=== PATIENT | female | born 1975 | race Caucasian/White ===

== ENCOUNTER 2020-05-24 13:58 | Outpatient (REF) | payer OTHER, SELFPAY | END 2020-05-24 13:59 | disposition home or self-care (01) | LOC: HO.LNP 13:58 | PROVIDERS: Visit Provider Hospitalist | DX: Z13.89 Encounter for screening for other disorder (principal) ==

== ENCOUNTER 2020-05-24 14:17 | Outpatient (REF) | payer OTHER, SELFPAY | END 2020-05-24 14:18 | disposition home or self-care (01) | LOC: HO.LAB 14:17 | PROVIDERS: Visit Provider Hospitalist | DX: Z20.828 Contact with and (suspected) exposure to other viral communicable diseases (principal) | CPT/HCPCS: U0003 ==

== ENCOUNTER 2021-07-12 11:44 | Outpatient (REF) | payer OTHER, SELFPAY ==
[2021-07-12 14:04] LABS: Hematocrit 38.8 % (37.0-47.0); Hemoglobin 12.8 g/dl (12.0-16.0); Mean Corpuscular Hemoglobin 27.8 pg (27.0-33.0); Mean Corpuscular Volume 84.2 fL (80.0-98.0); Mean Platelet Volume 9.9 fL (9.4-12.3); Platelet Count 298 X10*3/uL (160-400); Red Blood Count 4.61 X10*6/uL (4.20-5.50); White Blood Count 5.8 X10*3/uL (4.8-10.8)
[2021-07-12 14:43] LABS: Alanine Aminotransferase 12 U/L (0-31); Albumin Level 4.2 g/dL (3.5-5.0); Alkaline Phosphatase 37 U/L (39-117); Anion Gap 10 (12-20); Aspartate Amino Transferase 16 U/L (5-31); Bilirubin Total 0.3 mg/dL (0.0-1.0); Blood Urea Nitrogen 11 mg/dL (9-16); Calcium 9.3 mg/dL (8.4-10.2); Carbon Dioxide 28 mmol/L (22-29); Chloride 105 mmol/L (96-108); Cholesterol 186 mg/dL; Estimated Glomerular Filt Rate > 60; Glucose Fasting 112 mg/dL (60-99); HDL Cholesterol 54 mg/dL; LDL Cholesterol Calculated 113 mg/dl; Potassium 3.8 mmol/L (3.3-5.1); Sodium 139 mmol/L (135-145); Total Protein 7.1 g/dL (6.5-8.0); Triglycerides 96 mg/dL
[2021-07-12 15:03] LABS: TSH reflex Free T4 1.12 uIU/mL (0.32-4.0)
== END 2021-07-12 11:45 | disposition home or self-care (01) ==
LOC: HO.WFDLDS 11:44
PROVIDERS: Visit Provider Hospitalist
DX: Z00.00 Encounter for general adult medical examination without abnormal findings (principal)
CPT/HCPCS: 36415; 80053; 80061; 84443; 85027

== ENCOUNTER 2023-11-28 11:43 | Outpatient (AMB) | payer OTHER, SELFPAY ==
--- NOTE | 2023-11-28 11:48 | A.OFFPC_ITS ---
Vital Signs 11/28/23 11:50 11/28/23 12:54 Height 5 ft 2 in Weight 129 lb 8 oz BMI 23.7 BP 146/90 H 132/80 Blood Pressure Location Rt brachial Rt brachial Position Sitting Sitting Respiration 14 Pulse 66 Pulse Source Pulse Oximeter Temp 97.6 F Temp Source Temporal Artery Scan Pulse Oximetry (%) 99 Oxygen Delivery Method Room Air Intake Visit Reasons: NERIS from [facility] [place] - see comments Field Naturalist Required: No Accompanied by: Self / Same As Patient Allergies cefdinir [From Omnicef] Allergy (Unknown, Verified 11/28/23 12:33) unknown latex Allergy (Unknown, Verified 11/28/23 12:33) unknown naproxen Allergy (Unknown, Verified 11/28/23 12:33) unknown Medication List - Last Reconciled 11/28/23 by Angelica Boyer, [facility]- norethindrone-e.estradiol-iron 1 mg-20 mcg (21)/75 mg (7) (07/06 (28)) 1 tab PO DAILY Tobacco use date assessed: 11/28/23 Dental Screening Dental Screen Date: 11/28/23 Did you have a dental visit in the last 12 months?: Yes Did you have a dental problem in the last 6 months where you did not have access to dental care?: No Was dental information given to patient?: Patient has dentist HPI HPI Comments History of Present Illness Details 48-year-old female with fibroids, heart murmur, chronic neck and back pain, LINA, MDD s/p c section 2012, Social: 11 year old son, Works embedded software development engineer [employer] Health Maintenance: Tdap 2012, updated today. Pap ____ Colon > Due per insurance Mammo due 01/2024 at [facility]. Admits past 2 abnormal and needing add'l imaging. Benign dense tissue. Specialists: PRINCIPLE SOFTWARE ENGINEER Counselor Here today as a [facility] Back of left arm has a skin lesion, not changing shape. always scabbed over, has been there for a few years. bleeds at time when scratching. >> refer to Derm Developed fibroids with heavy bleeding and pain, started a few years ago Was given OCP to help with some improvement assoc w daily pain that is tolerable low energy decreased mood since having COVID several times this changed my life ; recently . Feeling tired and breathless w/ limited physical activity Has never taken medications to help w/ mood would rather use natural supplements Plan: Check labs to r/o anemia in the setting of fibroids w/ heavy menses Consult w/ Herbarium or the like to consider herbal supplements for mood Colon referral placed today RTO for CPE and lab review, sooner as needed PFSH Medical History (Updated 11/29/23 @ 08:13 by Angelica Boyer, [facility]) Ovarian cyst No pertinent past medical history Surgical History No pertinent past surgical history Family History Mother Pacemaker Sister Cancer Father Prostate cancer Social History Housing: House Alcohol intake: never Patient Tobacco Use Status: Never used Tobacco e-Cigarette/Vaping Use: Never Used Second Hand Smoke Exposure: No service: No Current occupational status: employed Current occupation: Work[employer] Cognitive needs: No Hearing needs: No Vision needs: No Questionnaire PHQ-9 Over the last 2 weeks, how often have you been bothered by any of the following problems? 1. Little interest or pleasure in doing things: more than half the days 2. Feeling down, depressed, or hopeless: more than half the days 3. Trouble falling or staying asleep, or sleeping too much: several days 4. Feeling tired or having little energy: nearly every day 5. Poor appetite or overeating: several days 6. Feeling bad about yourself - or that you are a failure or have let yourself or your family down: several days 7. Trouble concentrating on things, such as reading the newspaper or watching t elevision: more than half the days 8. Moving or speaking so slowly that other people could have noticed. Or the opposite - being so fidgety or restless that you have been moving around a lot more than usual: not at all 9. Thoughts that you would be better off or of hurting yourself in some way: not at all Total score: 12 Depression Screening Interpretation: Positive Depression Screening Follow-up: Existing condition and In treatment Depression Screening Done: Yes 01159 - PHQ-9 Billing: Yes Source: Developed by Drs. Elmer Ellis, Jose Manuel Valles and colleagues, with an educational radha from [employer]. Thrive Questionnaire Date Thrive assessed: 11/28/23 I am a: Patient What is your living situation today?: I have a steady place to live Within the past 12 months, did the food you bought not last and you didn't have the money to get more?: Never true Within the past 12 months, did you worry whether your food would run out before you got money to buy more?: Never true Do you have trouble paying for medicines?: No Do you have trouble getting transportation to medical appointments?: No Do you have trouble paying your heating and electricity bill?: No Do you have trouble taking care of your child, family member or friend?: No Do you have trouble with day-to-day activities such as bathing, preparing meals, shopping, managing finances, etc.?: No Are you currently unemployed and looking for a job?: No Are you interested in more education?: No Please select the resources that you would like help with: None Currently or been in a relationship where the following occur: no concerns reported THRIVE Score: 0 AUDIT C Alcohol Use Questionnaire (AUDIT-C) 1. How often do you have a drink containing alcohol?: Never 3. How often do you have six or more drinks on one occasion?: Never Total Score: 0 Score Reviewed/Action Taken: Yes LINA-7 AMB Questionnaire LINA-7 Date LINA - 7 assessed: 11/28/23 Feeling nervous, anxious, or on edge: 2 = More than half the days Not being able to stop or control worryin = Several days Worrying too much about different things: 1 = Several days Trouble relaxin = Nearly every day Being so restless that it is hard to sit still: 1 = Several days Becoming easily annoyed or irritable: 1 = Several days Feeling afraid as if something awful might happen: 0 = Not at all Total LINA-7 score (0-4 normal; 5-9 mild; 10-14 moderate; 15-21 severe): 9 Source: Developed by Chelly Marsh Kurt Kroenke and colleagues, with an educational radha from [employer]. LINA-7 Assessment Billing LINA-7 Assessment Tool: LINA-7 Assessment 32330 Review of Systems Const All systems reviewed & are unremarkable except as noted in HPI and below Physical exam (Primary Care) Vital Signs: Last Vital Signs Temp 97.6 F 11/28/23 11:50 Pulse 66 11/28/23 11:50 Resp 14 11/28/23 11:50 BP 132/80 11/28/23 12:54 Pulse Ox 99 11/28/23 11:50 Oxygen Delivery Method Room Air 11/28/23 11:50 BMI result Body Mass Index 23.7 Tobacco/Smoking Status: Tobacco use Status Tobacco use date assessed 11/28/23 11/28/23 12:01 Patient Tobacco Use Status Never used Tobacco 11/28/23 11:49 e-Cigarette/Vaping Use Never Used 11/28/23 11:49 PHQ-9: PHQ-9 Score PHQ-9: Total score 12 11/28/23 12:58 Depression Screening Interpretation: Positive Depression Screening Follow-up: Existing condition and In treatment Thrive Assessment: Date of Thrive Assessment Date Thrive assessed 11/28/23 11/28/23 12:01 Currently or been in a relationship where the following occur: no concerns reported Const Other: awake alert NAD Tearful when talking however appropriate RRR LS CTAB posterior left upper arm is a pea sized slightly raised beige colored skin lesion with some grullon noted, no drainage. Immunizations Boostrix Tdap 2.5 Lf unit-8 mcg-5 Lf/0.5 mL intramuscular syringe Performing Provider: MISTY Edmondson Performing Location: [facility] Administered by: Marina Draper CMA on 11/28/23 13:02 Dose Route Admin Location Dispensed Lot Number Expiration Date [facility] Musculoskeletal Physician 0.5 mL IM Left Deltoid 0.5 mL [id number] 01/23/26 [id number] [id number] 0.5 mL IM Left Deltoid 0.5 mL [id number] 01/23/26 [id number] [employer] VIS Given Date VIS Provided VIS Publication Date 11/28/23 Single Vaccine 21 Eligibility Eligibility Date Funding Source Not [facility] Eligible 11/28/23 Private Assessment and Plan Assessment & Plan (1) Skin lesion: Comment: posterior left upper arm referred to derm Code(s): L98.9 - Disorder of the skin and subcutaneous tissue, unspecified (2) Screen for colon cancer: Code(s): Z12.11 - Encounter for screening for malignant neoplasm of colon (3) MDD (major depressive disorder), recurrent episode: Comment: declines meds would like natural rec: herbarium in counseling Code(s): F33.9 - Major depressive disorder, recurrent, unspecified Qualifiers: Major depression episode severity: mild Qualified Code(s): F33.0 - Major depressive disorder, recurrent, mild (4) LINA (generalized anxiety disorder): Comment: declines meds would like natural rec: herbarium in counseling Code(s): F41.1 - Generalized anxiety disorder (5) Laboratory exam ordered as part of routine general medical examination: Code(s): Z00.00 - Encounter for general adult medical examination without abnormal findings Plan: This note is constructed using voice recognition software. While every effort has been made to ensure accuracy in nut tapper, still errors may have been included Sometimes, these errors may affect the content or meaning of the given sentence . Total time spent caring for the patient today was 47 minutes. This includes time spent before the visit reviewing the chart, time spent during the visit, and time spent after the visit on documentation Orders: Orders Hemoglobin A1c 11/28/23 Z00.00 - Encounter for general adult medical examination without abnormal findings IRON PROFILE 11/28/23 Z00.00 - Encounter for general adult medical examination without abnormal findings Complete Blood Count no Diff 11/28/23 Z00.00 - Encounter for general adult medical examination without abnormal findings TDaP Immunization 11/28/23 Z23 - Encounter for immunization Comprehensive Met. Panel 11/28/23 Z00.00 - Encounter for general adult medical examination without abnormal findings Vitamin B12 and Folate 11/28/23 Z00.00 - Encounter for general adult medical examination without abnormal findings Vitamin D 1,25 dihydroxy 11/28/23 Z00.00 - Encounter for general adult medical examination without abnormal findings TSH reflex Free T4 11/28/23 Z00.00 - Encounter for general adult medical examination without abnormal findings Microalbumin, Random (w Creat) 11/28/23 Z00.00 - Encounter for general adult me dical examination without abnormal findings LDL Cholesterol Direct 11/28/23 Z00.00 - Encounter for general adult medical examination without abnormal findings Referrals Dermatology Referral L98.9 - Disorder of the skin and subcutaneous tissue, unspecified Gastroenterology Referral Z12.11 - Encounter for screening for malignant neoplasm of colon Patient Instructions: Labs done today for generalized screening GI referral for colonoscopy Derm referral for skin lesion back of [facility] in [place] Check labs to r/o anemia in the setting of fibroids w/ heavy menses Consult w/ Herbarium or the like to consider herbal supplements for mood Colon referral placed today RTO for CPE and lab review, sooner as needed Derm referral for skin lesion back of [facility] in [place] Walk-In Care (Urgent Care): We Make it Easy Walk-in for urgent medical issues such as: ? Seasonal Allergies ? Insect Bites ? Cough ? Diarrhea ? Acute Asthma Attacks ? Back, Knee or Joint Pain ? Ear Infection ? Fever without a Rash ? Headaches ? Nausea ? [place] Eye, Rash or Skin Irritation ? Sore Throat ? Sports Physicals ? Vomiting Most insurances are accepted. Patients do not need to be part of the [facility] to seek care at the walk-in clinic. Locations [facility] , [place] [address] ? [phone] [facility] Walk-In Care in [place] provides services to ages 18 and over. Open Saturday-Saturday: 8 a.m. to 5 p.m. and Saturday: 9 a.m. to 3 p.m.* *Hours may vary due to staffing availability. To confirm Walk-In Care hours in [place], please call [phone]. [address] [place] [address] ? [phone] [facility] Walk-In Care in [place] provides services to ages 12 and over. Open Saturday-Saturday: 8 a.m. to 5 p.m. Hours may vary due to staffing availability. To confirm Walk-In Care hours in [place], please call [phone]. LABORATORY SERVICES: [facility] Lab ? Primary Location [address] [place] [address] Saturday through Saturday 6:00 AM ? 5:00 PM Saturday 7:00 AM ? 11:00 AM* [phone] The [facility] Lab is centrally located near the front entrance of the Medical Center for easy outpatient access. Convenient parking is provided for outpatients. *Hours may vary due to staffing availability. To confirm Laboratory hours for any location, please call [phone]. Offsite Location For your convenience, we offer offsite laboratory draw stations at the following locations: [address] [facility] [place] [address], [address], [place] Saturday through Saturday 7:30 AM ? 1:00 PM* [phone] *Hours may vary due to staffing availability. To confirm Laboratory hours for any location, please call [phone]. [place] ? [facility] [address] [facility], [place] Saturday through Saturday 6:00 AM ? 3:30 PM* Saturday 6:30 AM ? 3 PM* [phone] *Hours may vary due to staffing availability. To confirm Laboratory hours for any location, please call [phone]. [address] [facility] Saturday through Saturday 7:30 AM ? 4:00 PM* [phone] *Hours may vary due to staffing availability. To confirm Laboratory hours for any location, please call [phone] [place] [address] Saturday through 9:00 AM ? 4:00 PM* *Hours may vary due to staffing availability. To confirm Laboratory hours for any location, please call [phone]. Appointments are not necessary. Walk-ins are welcome. Like all the departments throughout the [facility], our Lab undergoes frequent reviews to ensure the quality and accuracy of test results, and our staff takes special pride in its status as a nationally accredited facility. Patient Portal: ONE PATIENT. ONE RECORD. BETTER CARE. [facility] has a fully integrated, cutting- edge mobile electronic health information system that has revolutionized the way we care for our patients and manage our organization. This system improves communication and coordination enabling us to provide safe, higher-quality care, and an overall positive experience for staff and patients. Our first priority, as always, is to deliver the highest quality care possible. The system is running in the background supporting that priority. This portal is for all [facility] services and practices. If you are experiencing any technical difficulties with enrolling or logging into the Patient Portal please complete the [facility] Patient Portal Technical Support Form. [facility] now offers a new secure on-line interactive tool for patients to review their health information ? ?Patient Portal. This interactive web portal will enable patients and their families to take an active role in their care by providing easy, secure access to their health information via the internet. The Patient Portal provides patients with instant access to their health information, including laboratory results, medications, allergies, demographic information, visit history, and more. In addition to managing their own care, p arents and health care proxies with authorized consent will appreciate the ability to access the records of those individuals for whom they provide care. Please note: if you wish to gain access (Proxy) to another patient?s portal, you will be required to come to the Medical Records Department in person at [facility]. Both the patient giving proxy access and the proxy will need to provide photo identification and complete the appropriate authorization. The Patient Portal also allows track their appointments online. The [facility] Patient Portal also saves patients time by allowing them to submit updates to their demographic and contact information prior to their visits. Portal email notifications will also alert patients to any new activity on their portal, such as test results and new appointments. In order to initially enroll in the [facility] Patient Portal, you will need to enter some required information including the following: * your [facility] Medical Record number * your personal home email address * name * date of Please note: In order to enroll in the [facility] Patient Portal, we need to have your email address on file in your electronic medical record. ?The email address needs to be specific for one person (yourself) in order for your Portal enrollment to be successful. ?You can update your email address in person with our Registration staff when you are registering for a hospital visit. ?Otherwise, you will need to come to the Health Information Management (Medical Records) Department at [facility]. ?We are open from Saturday ? Saturday from 7:30 a.m. ? 4:30 p.m. ?You will be required to present a photo id. Once you have successfully enrolled in the Patient Portal, you will receive a one-time user id and password for the Portal, sent to your email address. ?This will allow you to log into the Patient Portal within 99 hrs and reset your own logon id and password, and define personal security questions. ?Once your permanent login and password have been set, you can log into the [facility] Patient Portal at any time via the blue button above or from the Portal Logon button on any page of the [facility] website. [facility] encourage all of our patients to enroll in Patient Portal as it presents a valuable opportunity for patients and their families to actively participate in their care and stay healthy Welcome to [facility]. ?We look forward to working with you. Coding Level of Care Code New Pt Level 4 (69709) Diagnoses Skin lesion L98.9 Screen for colon cancer Z12.11 Mild episode of recurrent major depressive disorder F33.0 Major depression episode severity: mild LINA (generalized anxiety disorder) F41.1 Laboratory exam ordered as part of routine general medical examination Z00.00 Additional Codes LINA-7 Assessment Billing - LINA-7 Assessment Tool: LINA-7 Assessment 14471 ([id number])
[2023-11-28 11:50] VITALS: BP 146/90; PULSE 66; RESP 14; TEMP 36.4; O2SAT 99; BMI 23.7
[2023-11-28 12:54] VITALS: BP 132/80
== END 2023-11-28 13:04 | disposition home or self-care (01) ==
PROVIDERS: PCP Nurse Practitioner Family; Visit Provider Nurse Practitioner Family
DX: Z23 Encounter for immunization (principal)
CPT/HCPCS: 90471; 90715; 99214

== ENCOUNTER 2023-11-28 13:09 | Outpatient (REF) | payer OTHER, SELFPAY ==
[2023-11-28 14:49] LABS: Estimated Average Glucose 97 mg/dL
[2023-11-28 14:54] LABS: Hemoglobin 13.4 g/dl (12.0-16.0); Mean Corpuscular HGB Conc 35.3 g/dl (31.0-35.0); Mean Corpuscular Hemoglobin 28.8 pg (27.0-33.0); Mean Corpuscular Volume 81.5 fL (80.0-98.0); Mean Platelet Volume 10.2 fL (9.4-12.3); Platelet Count 335 X10*3/uL (160-400); Red Blood Count 4.66 X10*6/uL (4.20-5.50); Red Cell Distribution Width 12.9 % (11.0-16.0); White Blood Count 6.9 X10*3/uL (4.8-10.8)
[2023-11-28 15:28] LABS: Alanine Aminotransferase 15 U/L (0-31); Albumin Level 4.2 g/dL (3.5-5.0); Alkaline Phosphatase 42 U/L (39-117); Anion Gap 10 (12-20); Aspartate Amino Transferase 14 U/L (5-31); Bilirubin Total 0.3 mg/dL (0.0-1.0); Blood Urea Nitrogen 12 mg/dL (9-16); Calcium 9.3 mg/dL (8.4-10.2); Carbon Dioxide 26 mmol/L (22-29); Chloride 105 mmol/L (96-108); Estimated Glomerular Filt Rate > 60; Glucose Random 78 mg/dL (60-115); Iron 128 mcg/dL (30-160); Percent Iron Saturation 31 % (15-50); Potassium 3.4 mmol/L (3.3-5.1); Sodium 138 mmol/L (135-145); Total Iron Binding Capacity 407 mcg/dL (228-428); Total Protein 7.4 g/dL (6.5-8.0); Unsaturated Iron Binding 279 ug/dL
[2023-11-28 15:44] LABS: TSH reflex Free T4 1.86 uIU/mL (0.32-4.0)
[2023-11-28 15:51] LABS: Folate 10.4 ng/mL (> or = 4.0); Vitamin B12 362 pg/mL (200-900)
[2023-11-28 18:15] LABS: Creatinine Urine 26.47 mg/dL; Microalbum/Creatinine Ratio Ur 18.8 ug/mg cr (<30)
[2023-11-29 12:13] LABS: LDL Cholesterol Direct 135 mg/dL (<100)
[2023-12-02 09:19] LABS: VITAMIN D (1,25 OH) D3 40 pg/mL; Vit D (1,25-Dihydroxy) Total 40 pg/mL (18-72); Vitamin D (1,25 OH) D2 <8 pg/mL
== END 2023-11-28 13:10 | disposition home or self-care (01) ==
LOC: HO.WFDLDS 13:09
PROVIDERS: Visit Provider Nurse Practitioner Family
DX: Z00.00 Encounter for general adult medical examination without abnormal findings (principal); Z13.1 Encounter for screening for diabetes mellitus; Z13.89 Encounter for screening for other disorder
CPT/HCPCS: 36415; 80053; 82043; 82570; 82607; 82652; 82746; 83036; 83540; 83721; 84443; 85027

== ENCOUNTER 2023-12-26 07:53 | Outpatient (AMB) | payer OTHER, SELFPAY ==
--- NOTE | 2023-12-26 07:55 | A.OFFPC_ITS ---
Vital Signs 12/26/23 08:08 Weight 129 lb BP 122/60 Blood Pressure Location Lt brachial Position Sitting Pulse 69 Pulse Source Pulse Oximeter Pulse Oximetry (%) 98 Oxygen Delivery Method Room Air Intake Visit Reasons: pe follow labs Post menopausal: No Patient : No Allergies cefdinir [From Omnicef] Allergy (Unknown, Verified 12/26/23 08:08) unknown latex Allergy (Unknown, Verified 12/26/23 08:08) unknown naproxen Allergy (Unknown, Verified 12/26/23 08:08) unknown Medication List - Last Reconciled 12/26/23 by Angelica Boyer, [employer] DEVELOPER ANALYST-BC norethindrone-e.estradiol-iron 1 mg-20 mcg (21)/75 mg (7) ( FE 07/06 ()) 1 tab PO DAILY Tobacco use date assessed: 11/28/23 Dental Screening Dental Screen Date: 11/28/23 HPI HPI Comments History of Present Illness Details 48-year-old female with fibroids, heart murmur, chronic neck and back pain, LINA, MDD, borderline hyperlipidemia Surgical hx: s/p c section 2012 Social: 11 year old son, Works full service vending driver [employer] Family hx: Dad dx 2023 lung cancer + smoker, Mom - pacemaker since age 50, Son alive and well, Sisters- 3 alive, older sister w/ lupus, younger sister w/ uterine cancer age 30 s/p FABIENNE, MGM DM, PGF melanoma, maternal aunt age 30 d/t canceer (? bone cancer) Health Maintenance: Tdap 11/2023 Pap ___ UTD, she has requested the results for me. Colon has never had one - see below. Mammo due 01/2024 at [facility]. Admits past 2 abnormal and needing add'l imaging. Benign dense tissue. Eye - appt coming up in January 2024; wears glasses to drive. Noticed decreased visual acuity w/ reading; wearing blue light glasses. Specialists: IMAGING SYSTEM ADMINISTRATOR Counselor Isela has appt scheduled GI Here today for a CPE. Hystogram 1 month ago, told everything fine except fibroids, discussed FABIENNE given sx however will put off @ this time as she can manage w/ the sx at this time. Discussed monitoring CBC d/t bleeding. Has MVI with Iron but does forget to take @ times. most recent CBC WNL along w/ Iron profile. Borderline hyperlipidemia: lifestyle mods encouraged, repeat labs 1 year. Due for colorectal cancer screening per [facility] 11/2023 did not schedule GI appt, referral closed -- does not have transport, other barriers to having the colonoscopy completed. not having any sx. no family hx. Will do cologaurd @ this time, ordered today. Labs from 11/28/23 reviewed w/ her in detail today. [facility] Medical History (Updated 12/26/23 @ 12:52 by Angelica Boyer, [facility]) Ovarian cyst No pertinent past medical history Surgical History No pertinent past surgical history Family History Mother Pacemaker Sister Cancer Father Prostate cancer Social History Housing: House Alcohol intake: never Patient Tobacco Use Status: Never used Tobacco e-Cigarette/Vaping Use: Never Used Second Hand Smoke Exposure: No service: No Current occupational status: employed Current occupation: [employer] Cognitive needs: No Hearing needs: No Vision needs: No Questionnaire Thrive Questionnaire Date Thrive assessed: 11/28/23 LINA-7 AMB Questionnaire LINA-7 Date LINA - 7 assessed: 11/28/23 Source: Developed by Drs. Elmer Ellis, Chelly Ceron, Jose Manuel Taylor and colleagues, with an educational radha from [employer]. Review of Systems Const Details: Constitutional: Denies fever. Skin: Denies rash. Eye: Denies eye pain. ENMT: Denies sore throat and nasal congestion. Respiratory: Denies shortness of breath and cough. Gastrointestinal: Denies nausea, vomiting or abdominal pain. Cardiovascular: Denies chest pain and syncope. Genitourinary: Denies dysuria. Musculoskeletal: Denies back pain and extremity pain. Neurologic: Denies headaches, confusion, and weakness. Psychiatric: Denies suicidal thoughts and substance abuse. Allergy/ Immunologic: Denies impaired immunity. Physical exam (Primary Care) Vital Signs: Last Vital Signs Pulse 69 12/26/23 08:08 BP 122/60 12/26/23 08:08 Pulse Ox 98 12/26/23 08:08 Oxygen Delivery Method Room Air 12/26/23 08:08 Tobacco/Smoking Status: Tobacco use Status Tobacco use date assessed 11/28/23 12/26/23 07:55 Patient Tobacco Use Status Never used Tobacco 12/26/23 07:55 e-Cigarette/Vaping Use Never Used 12/26/23 07:55 Thrive Assessment: Date of Thrive Assessment Date Thrive assessed 11/28/23 12/26/23 07:55 Const Other: General: Well developed, well nourished, in no acute distress. Appears stated age. Head: Normocephalic, atraumatic. Eyes: Pupils are equal, round and reactive to light and accommodation. Conjunctivae are clear. Vision grossly normal. Ears: TMs clear AU, EACS WNL Nose: Patent, without discharge. Mouth: There are no ulcers or lesions noted. No inflammation, no post nasal drip, no plaques nor exudates. Neck: Supple, no adenopathy or thyromegaly. Lungs: Clear to auscultation bilaterally. No rales, rhonchi or wheeze noted. Good air flow in all munoz. Heart: Regular rate and rhythm. No click, rubs or gallops are noted. 2/6 systolic murmur Abdomen: Bowel sounds present in all quadrants. The abdomen is soft, nontender, with no masses or organomegaly noted. No hernias are noted. Musculoskeletal: Joints are nontender, without swelling, redness, or effusions. Range of motion is observed to be normal. Pulses: Peripheral pulses are equal and palpable bilaterally. Extremities: No clubbing, cyanosis nor edema is noted. Neurologic: Gait and station normal. Cranial Nerves 2-[address] Motor str ength grossly symmetrical and intact. No sensory loss. Balance normal. Skin: No rashes, ulcers noted. Turgor is good. Skin color is good. Hair and nails are without abnormalities. posterior left upper arm is a pea sized slightly raised beige colored skin lesion with some grullon noted, no drainage Psych: Normal eye contact, affect and mood appropriate, and normal interact ions. Patient is alert and appropriate to context.Tearful when talking about family. Assessment and Plan Assessment & Plan (1) Normal physical exam: Code(s): Z00.00 - Encounter for general adult medical examination without abnormal findings (2) Hyperlipidemia: Code(s): E78.5 - Hyperlipidemia, unspecified Qualifiers: Hyperlipidemia type: moderate mixed hyperlipidemia not requiring statin therapy Qualified Code(s): E78.2 - Mixed hyperlipidemia (3) LINA (generalized anxiety disorder): Comment: declines meds would like natural rec: herbarium in counseling Code(s): F41.1 - Generalized anxiety disorder (4) MDD (major depressive disorder), recurrent episode: Comment: declines meds would like natural rec: herbarium in counseling Code(s): F33.9 - Major depressive disorder, recurrent, unspecified Qualifiers: Major depression episode severity: mild Qualified Code(s): F33.0 - Major depressive disorder, recurrent, mild (5) Fibroid uterus: Code(s): D25.9 - Leiomyoma of uterus, unspecified Qualifiers: Uterine leiomyoma location: unspecified location Qualified Code(s): D25.9 - Leiomyoma of uterus, unspecified Orders: Orders Microalbumin, Random (w Creat) 12/15/24 E78.5 - Hyperlipidemia, unspecified, Z00.00 - Encounter for general adult medical examination without abnormal findings Lipid Panel 12/15/24 E78.5 - Hyperlipidemia, unspecified, Z00.00 - Encounter for general adult medical examination without abnormal findings TSH reflex Free T4 12/15/24 E78.5 - Hyperlipidemia, unspecified, Z00.00 - Encounter for general adult medical examination without abnormal findings Vitamin B12 and Folate 12/15/24 E78.5 - Hyperlipidemia, unspecified, Z00.00 - Encounter for general adult medical examination without abnormal findings Complete Blood Count no Diff 06/17/24 D25.9 - Leiomyoma of uterus, unspecified IRON PROFILE 06/17/24 D25.9 - Leiomyoma of uterus, unspecified Comprehensive [place]. Panel Fast 12/15/24 E78.5 - Hyperlipidemia, unspecified, Z00.00 - Encounter for general adult medical examination without abnormal findings Complete Blood Count no Diff 12/15/24 E78.5 - Hyperlipidemia, unspecified, Z00.00 - Encounter for general adult medical examination without abnormal findings IRON PROFILE 12/15/24 E78.5 - Hyperlipidemia, unspecified, Z00.00 - Encounter for general adult medical examination without abnormal findings Vitamin D 25-OH Total 12/15/24 E78.5 - Hyperlipidemia, unspecified, Z00.00 - Encounter for general adult medical examination without abnormal findings Referrals Cologuard Test Z12.11 - Encounter for screening for malignant neoplasm of colon, Z12.12 - Encounter for screening for malignant neoplasm of rectum Medications: New multivitamin with iron 1 tab PO DAILY 90 tabs 0RF Patient Instructions: RTO in 1 year for CPE, sooner as needed. I placed orders for CBC and Iron in 6 months if your IMAGING SYSTEM ADMINISTRATOR does not order this, please stop in and get these labs done. If done by IMAGING SYSTEM ADMINISTRATOR no need to have them done for me in 6 months routine lab draw in 1 year, orders placed cont lifestyle mods for cholesterol cont counseling; [facility]. Health screenings for women You should visit your health care provider from time to time, even if you are healthy. The purpose of these visits is to: Screen for medical issues Assess your risk for future medical problems Encourage a healthy lifestyle Update vaccinations and other preventive care services Help you get to know your provider in case of an illness Information Even if you feel fine, you should still see your provider for regular checkups. These visits can help you avoid problems in the future. For example, the only way to find out if you have high blood pressure is to have it checked regularly. High blood sugar and high cholesterol levels also may not have any symptoms in the early stages. A simple blood test can check for these conditions. There are specific times when you should see your provider or receive specific health screenings. The [place] Preventive Services Task Force publishes a list of recommended screenings. Below are screening guidelines for women ages 18 to 39. BLOOD PRESSURE SCREENING Your blood pressure should be checked at least once every 3 to 5 years if: Your blood pressure is in the normal range (top number less than 120 mm Hg and bottom number less than 80 mm Hg) You don't have risk factors for high blood pressure Ask your provider if you need your blood pressure checked more often if: The top number is 120 to 129 mm Hg or the bottom number is 70 to 79 mm Hg You have diabetes, heart disease, kidney problems, are overweight, or have certain other health conditions You have a first-degree relative with high blood pressure You are Black You had high blood pressure during a If the top number is 130 mm Hg or greater or the bottom number is 80 mm Hg or greater, this is considered stage 1 hypertension. Schedule an appointment with your provider to learn how you can reduce your blood pressure. Watch for blood pressure screenings in your area. Ask your provider if you can stop in to have your blood pressure checked. BREAST CANCER SCREENING Experts do not agree about the benefits of breast self-exams in finding breast cancer or saving lives. Talk to your provider about what is best for you. A screening mammogram is not recommended for most women under age 40. Your provider may discuss and recommend mammograms, MRI scans, or ultrasounds if you have an increased risk for breast cancer, such as: A mother or sister who had breast cancer at a young age (most often starting screening earlier than the age the close relative was diagnosed) You carry a high-risk genetic marker CERVICAL CANCER SCREENING Cervical cancer screening should start at age 21 years unless your provider advises otherwise. After the first test: Women ages 21 through 29 should have a Pap test every 3 years. Exoprts do not agree on whether HPV testing is recommended for this age group. Women ages 30 through 65 should be screened with either a Pap test every 3 years or the HPV test every 5 years or both tests every 5 years (called cotesting ). Women who have been treated for precancer (cervical dysplasia) should continue to have Pap tests for 20 years after treatment or until age 65, whichever is longer. If you have had your uterus and cervix removed (total hysterectomy), and you have not been diagnosed with cervical cancer or precancer (high grade cervical neoplasia), you do not need cervical cancer screening. CHOLESTEROL SCREENING Cholesterol screening should begin at: Age 45 for women with no known risk factors for coronary heart disease Age 20 for women with known risk factors for coronary heart disease Repeat cholesterol screening should take place: Every 5 years for women with normal cholesterol levels More often if changes occur in lifestyle (including weight gain and diet) More often if you have diabetes, heart disease, kidney problems, or certain other conditions DIABETES SCREENING You should be screened for diabetes starting at age 35 and then repeated every 3 years if you have no risk factors for diabetes. Screening may need to start earlier and be repeated more often if you have other risk factors for diabetes, such as: You have a first degree relative with diabetes. You are overweight or have obesity. You have high blood pressure, prediabetes, or a history of heart disease. Screening for diabetes should be done if you are planning to become and you are overweight and have other risk factors such as high blood pressure. DENTAL EXAM Go to the dentist once or twice every year for an exam and cleaning. Your dentist will evaluate if you need more frequent visits. EYE EXAM Have an eye exam every 5 to 10 years before age 40. If you have vision problems, have an eye exam every 2 years or more often if recommended by your provider. You should have an eye exam that includes an examination of your retina (back of your eye) at least every year if you have diabetes. IMMUNIZATIONS Commonly needed vaccines include: Flu shot: get one every year. COVID-19 vaccine: ask your provider what is best for you. Tetanus-diphtheria and acellular pertussis (Tdap) vaccine: have one at or after age 19 as one of your tetanus-diphtheria vaccines if you did not receive it as an adolescent. Tetanus-diphtheria: have a booster (or Tdap) every 10 years. Varicella vaccine: receive 2 doses if you never had chickenpox or the varicella vaccine. Hepatitis B vaccine: receive 2, 3, or 4 doses, depending on your exact circumstances. Measles, mumps, and rubella (MMR) vaccine: receive 1 to 2 doses if you are not already immune to MMR. Your provider can tell you if you are immune. Ask your provider about the human papillomavirus (HPV) vaccine if: You have not received the HPV vaccine in the past You have not completed the full vaccine series (you should catch up on this shot) Ask your provider if you should receive other immunizations if you have certain health problems that increase your risk for some diseases such as pneumonia. INFECTIOUS DISEASE SCREENING Women who are sexually active should be screened for chlamydia and gonorrhea up until age 25. Women 25 years and older should be screened for chlamydia and gonorrhea if at high risk. Screening for hepatitis C: All adults ages 18 to 79 should get a one-time test for hepatitis C. people should be screened at every . Screening for human immunodeficiency virus (HIV): All people ages 15 to 65 should get a one-time test for HIV. Depending on your lifestyle and medical history, you may also need to be screened for infections such as syphilis and HIV, as well as other infections. PHYSICAL EXAM All adults should visit their provider from time to time, even if they are healthy. The purpose of these visits is to: Screen for disease Assess your risk of future medical problems Encourage a healthy lifestyle Update your vaccinations and other preventive care services Maintain a relationship with a provider in case of an illness Your height, weight, and BMI should be checked at every exam. During your exam, your provider may ask you about: Depression and anxiety Diet and exercise Alcohol and tobacco use Safety issues, such as using seat belts, smoke detectors, and intimate partner violence Your medicines and risk for interactions SKIN SELF-EXAM Your provider may check your skin for signs of skin cancer, especially if you're at high risk, such as if you: Have had skin cancer before Have close relatives with skin cancer Have a weakened immune system OTHER SCREENING Talk with your provider about colon cancer screening if you have a strong family history of colon cancer or polyps, or if you have had inflammatory bowel disease or polyps yourself. Routine bone density screening of women under 40 is not recommended. Coding Level of Care Code Est Pt Prev Care 40-64y(90724) Diagnoses Normal physical exam Z00.00 Moderate mixed hyperlipidemia not requiring statin therapy E78.2 Hyperlipidemia type: moderate mixed hyperlipidemia not requiring statin therapy LINA (generalized anxiety disorder) F41.1 Mild episode of recurrent major depressive disorder F33.0 Major depression episode severity: mild Uterine leiomyoma, unspecified location D25.9 Uterine leiomyoma location: unspecified location
[2023-12-26 08:08] VITALS: BP 122/60; PULSE 69; O2SAT 98
== END 2023-12-26 08:46 | disposition home or self-care (01) ==
PROVIDERS: PCP Nurse Practitioner Family; Visit Provider Nurse Practitioner Family
DX: Z00.00 Encounter for general adult medical examination without abnormal findings (principal); E78.2 Mixed hyperlipidemia; F41.1 Generalized anxiety disorder; F33.0 Major depressive disorder, recurrent, mild; D25.9 Leiomyoma of uterus, unspecified
CPT/HCPCS: 99396

== ENCOUNTER 2025-03-10 07:49 | Outpatient (REF) | payer OTHER, SELFPAY ==
[2025-03-10 12:07] LABS: Hematocrit 35.5 % (37.0-47.0); Hemoglobin 11.3 g/dl (12.0-16.0); Mean Corpuscular HGB Conc 31.8 g/dl (31.0-35.0); Mean Corpuscular Hemoglobin 25.1 pg (27.0-33.0); Mean Corpuscular Volume 78.7 fL (80.0-98.0); NRBC Abs Auto 0.000 X10*3/uL (0.0-0.012); NRBC Pct Auto 0.0 /100WBC (0.0-0.2); Platelet Count 289 X10*3/uL (160-400); Red Blood Count 4.51 X10*6/uL (4.20-5.50); White Blood Count 5.4 X10*3/uL (4.8-10.8)
[2025-03-10 12:44] LABS: Folate 13.8 ng/mL (> or = 4.0); Vitamin B12 684 pg/mL (200-900)
[2025-03-10 12:49] LABS: Anion Gap 11 (12-20)
[2025-03-10 12:54] LABS: Alanine Aminotransferase 15 U/L (0-31); Albumin Level 4.3 g/dL (3.5-5.0); Alkaline Phosphatase 51 U/L (39-117); Aspartate Amino Transferase 23 U/L (5-31); Blood Urea Nitrogen 8 mg/dL (9-16); Calcium 8.9 mg/dL (8.4-10.2); Carbon Dioxide 25 mmol/L (22-29); Chloride 108 mmol/L (96-108); Cholesterol 166 mg/dL (<200); Estimated Glomerular Filt Rate > 60; HDL Cholesterol 53 mg/dL (>40); Iron 37 mcg/dL (30-160); Percent Iron Saturation 10 % (15-50); Potassium 3.9 mmol/L (3.3-5.1); Sodium 140 mmol/L (135-145); Total Iron Binding Capacity 360 mcg/dL (228-428); Total Protein 7.0 g/dL (6.5-8.0); Triglycerides 98 mg/dL (<150); Unsaturated Iron Binding 323 ug/dL
[2025-03-10 13:10] LABS: Microalbum/Creatinine Ratio Ur 7.7 ug/mg cr (<30)
== END 2025-03-10 07:50 | disposition home or self-care (01) ==
LOC: HO.WFDLDS 07:49
PROVIDERS: PCP Nurse Practitioner Family; Visit Provider Nurse Practitioner Family
DX: Z00.00 Encounter for general adult medical examination without abnormal findings (principal); E78.5 Hyperlipidemia, unspecified; Z79.899 Other long term (current) drug therapy
CPT/HCPCS: 36415; 80053; 80061; 82043; 82306; 82570; 82607; 82746; 83540; 84443; 85027; 96127

== ENCOUNTER 2025-03-10 07:49 | Outpatient (AMB) | payer OTHER, SELFPAY ==
--- NOTE | 2025-03-10 07:54 | A.OFFPC_ITS ---
Vital Signs 03/10/25 08:01 Weight 131 lb BP 105/60 Blood Pressure Location Lt brachial Position Sitting Pulse 77 Pulse Source Pulse Oximeter Pulse Oximetry (%) 99 Oxygen Delivery Method Room Air Intake Visit Reasons: Annual PE Allergies cefdinir (From Omnicef) Allergy (Unknown, Verified 03/10/25 08:01) unknown latex Allergy (Unknown, Verified 03/10/25 08:01) unknown naproxen Allergy (Unknown, Verified 03/10/25 08:01) unknown Medication List - Last Reconciled 03/10/25 by Angelica Boyer, POLICE ACADEMY PROGRAM COORDINATOR- multivitamin with iron 1 tab PO DAILY norethindrone (contraceptive) (Rehana) 0.35 mg PO DAILY Tobacco use date assessed: 03/10/25 Dental Screening Dental Screen Date: 03/10/25 Did you have a dental visit in the last 12 months?: Yes Did you have a dental problem in the last 6 months where you did not have access to dental care?: No Was dental information given to patient?: Patient has dentist HPI HPI Comments History of Present Illness Details 49-year-old female with fibroids, heart murmur, chronic neck and back pain, LINA, MDD, borderline hyperlipidemia, fhx uterine ca and melanoma Surgical hx: s/p c section 2012 Social: 12 year old son, 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 bone cancer) Health Maintenance: Tdap 11/2023 Flu @ [facility] [employer] Pap 2023 Colon cologaurd 8.3.24 negative, repeat 2027 Mammo due 01/2024 at [facility]. Admits past 2 abnormal and needing add'l imaging. Benign dense tissue. Eye - last exam January 2024; wears glasses to drive. Noticed decreased visual acuity w/ reading; wearing blue light glasses. Specialists: [facility] Derm area on back of L arm removed, negative finding. Here today for CPE Cont w/ fibroids on OCP, cont to bleed, 20 days per period Due for US next week and uterine bx Cont to take MVI with Iron Not exercising Mammo done 01/2025 [facility] * Mood is better. Work cont to be stressor; busy. Was in counseling; stopped d/t insurance. Does not think she needs @ this time. Plan During the visit, we discussed her current medication, which includes a multivitamin with iron and a switch from Zofia to Rehana (norethindrone), as this is expected to help manage her heavy menstrual bleeding associated with fibroids. We reviewed the upcoming ultrasound and the uterine biopsy plans, which are in coordination with her women's health specialist. I encouraged her continued good dental hygiene practices. We discussed her preventive health screenings, including mammogram results. . Our exchange included a discussion about her anxiety and depression history, the situational improvement reported, and her decision to pause formal counseling due to her improved state and changes in health insurance. We reassured her about her father's management of lung cancer, acknowledging that he was responding well to therapy. Lastly, the patient expressed concern about inadequate exercise, attributed to a demanding work schedule and personal life responsibilities. Labs today Cont MVI with Iron Cont care w/ [facility] RTO 1 year CPE sooner as needed Patient was given time to ask questions. All questions were answered to their satisfaction. [facility] Medical History No pertinent past medical history Ovarian cyst Surgical History No pertinent past surgical history Family History Mother Pacemaker Sister Cancer Father Prostate cancer Social History Housing: House Alcohol intake: never Patient Tobacco Use Status: Never used Tobacco e-Cigarette/Vaping Use: Never Used Second Hand Smoke Exposure: No service: No Current occupational status: employed Current occupation: [employer] Cognitive needs: No Hearing needs: No Vision needs: No Questionnaire PHQ-9 Over the last 2 weeks, how often have you been bothered by any of the following problems? 1. Little interest or pleasure in doing things: not at all 2. Feeling down, depressed, or hopeless: not at all 3. Trouble falling or staying asleep, or sleeping too much: not at all 4. Feeling tired or having little energy: not at all 5. Poor appetite or overeating: not at all 6. Feeling bad about yourself - or that you are a failure or have let yourself or your family down: not at all 7. Trouble concentrating on things, such as reading the newspaper or watching television: not at all 8. Moving or speaking so slowly that other people could have noticed. Or the opposite - being so fidgety or restless that you have been moving around a lot more than usual: not at all 9. Thoughts that you would be better off or of hurting yourself in some way: not at all Total score: 0 Depression Screening Interpretation: Negative Depression Screening Done: Yes 71772 - PHQ-9 Billing: Yes Source: Developed by Drs. Elmer Ellis, Chelly Ceron, Jose Manuel Taylor and colleagues, with an educational radha from [employer]. Thrive Questionnaire Date Thrive assessed: 03/03/25 I am a: Patient What is your living situation today?: I have a steady place to live Within the past 12 months, did the food you bought not last and you didn't have the money to get more?: Never true Within the past 12 months, did you worry whether your food would run out before you got money to buy more?: Never true Do you have trouble paying for medicines?: No Do you have trouble getting transportation to medical appointments?: No Do you have trouble paying your heating and electricity bill?: No Do you have trouble taking care of your child, family member or friend?: No Do you have trouble with day-to-day activities such as bathing, preparing meals, shopping, managing finances, etc.?: No Are you currently unemployed and looking for a job?: No Are you interested in more education?: No Please select the resources that you would like help with: None Currently or been in a relationship where the following occur: No concerns reported THRIVE Score: 0 AUDIT C Alcohol Use Questionnaire (AUDIT-C) 1. How often do you have a drink containing alcohol?: 2-4 times a month 2. How many drinks containing alcohol do you have on a typical day when you are drinking?: 1 or 2 3. How often do you have six or more drinks on one occasion?: Never Total Score: 2 Score Reviewed/Action Taken: Yes LINA-7 AMB Questionnaire LINA-7 Date LINA - 7 assessed: 03/10/25 Feeling nervous, anxious, or on edge: 0 = Not at all Not being able to stop or control worryin = Not at all Worrying too much about different things: 0 = Not at all Trouble relaxin = Nearly every day Being so restless that it is hard to sit still: 0 = Not at all Becoming easily annoyed or irritable: 0 = Not at all Feeling afraid as if something awful might happen: 0 = Not at all Total LINA-7 score (0-4 normal; 5-9 mild; 10-14 moderate; 15-21 severe): 3 Source: Developed by Drs. Elmer Ellis, Chelly Ceron, Jose Manuel Taylor and colleagues, with an educational radha from [employer]. LINA-7 Assessment Billing LINA-7 Assessment Tool: LINA-7 Assessment 12489 Physical exam (Primary Care) Tobacco/Smoking Status: Tobacco use Status Tobacco use date assessed 11/28/23 12/26/23 07:55 Patient Tobacco Use Status Never used Tobacco 12/26/23 07:55 e-Cigarette/Vaping Use Never Used 12/26/23 07:55 Depression Screening Interpretation: Negative Thrive Assessment: Date of Thrive Assessment Date Thrive assessed 03/03/25 03/03/25 12:20 Currently or been in a relationship where the following occur: No concerns reported Const Other: General: Well developed, well nourished, in no acute distress. Appears stated age. Head: Normocephalic, atraumatic. Eyes: Pupils are equal, round and reactive to light and accommodation. Conjunctivae are clear. Vision grossly normal. Ears: TMs clear AU, EACS WNL Nose: Patent, without discharge. Mouth: There are no ulcers or lesions noted. No inflammation, no post nasal drip, no plaques nor exudates. Neck: Supple, no adenopathy or thyromegaly. Lungs: Clear to auscultation bilaterally. No rales, rhonchi or wheeze noted. Good air flow in all munoz. Heart: Regular rate and rhythm. No click, rubs or gallops are noted. 2/6 systolic murmur Abdomen: Bowel sounds present in all quadrants. The abdomen is soft, nontender, with no masses or organomegaly noted. No hernias are noted. Musculoskeletal: Joints are nontender, without swelling, redness, or effusions. Range of motion is observed to be normal. Pulses: Peripheral pulses are equal and palpable bilaterally. Extremities: No clubbing, cyanosis nor edema is noted. Neurologic: Gait and station normal. Cranial Nerves 2-12 intact. Motor strength grossly symmetrical and intact. No sensory loss. Balance normal. Skin: No rashes, ulcers noted. Turgor is good. Skin color is good. Hair and nails are without abnormalities. Psych: Normal eye contact, affect and mood appropriate, and normal interactions. Patient is alert and appropriate to context Coding Level of Care Code Est Pt Prev Care 40-64y(75435) Diagnoses Normal physical exam Z00.00 Mild episode of recurrent major depressive disorder F33.0 Major depression episode severity: mild LINA (generalized anxiety disorder) F41.1 Moderate mixed hyperlipidemia not requiring statin therapy E78.2 Hyperlipidemia type: moderate mixed hyperlipidemia not requiring statin therapy History of colonoscopy Z98.890 History of Papanicolaou smear of cervix Z92.89 Uterine leiomyoma, unspecified location D25.9 Uterine leiomyoma location: unspecified location History of mammogram Z92.89 Family history of uterine cancer Z80.49 Family history of melanoma Z80.8 Additional Codes PHQ-9 - 45219 - PHQ-9 Billing: Yes ([id number]) LINA-7 Assessment Billing - LINA-7 Assessment Tool: LINA-7 Assessment 76196 ([id number]) Assessment & Plan Assessment & Plan (1) Normal physical exam: Onset Date: ~03/10/25 Code(s): Z00.00 - Encounter for general adult medical examination without abnormal findings Category: Medical (2) MDD (major depressive disorder), recurrent episode: Comment: declines meds would like natural rec: herbarium in counseling Code(s): F33.9 - Major depressive disorder, recurrent, unspecified Category: Medical Qualifiers: Major depression episode severity: mild Qualified Code(s): F33.0 - Major depressive disorder, recurrent, mild (3) LINA (generalized anxiety disorder): Comment: declines meds would like natural rec: herbarium in counseling in the past Code(s): F41.1 - Generalized anxiety disorder Category: Medical (4) Hyperlipidemia: Code(s): E78.5 - Hyperlipidemia, unspecified Category: Medical Qualifiers: Hyperlipidemia type: moderate mixed hyperlipidemia not requiring statin therapy Qualified Code(s): E78.2 - Mixed hyperlipidemia (5) History of colonoscopy: Onset Date: ~01/2025 Comment: cologaurd negative, repeat 2027 Code(s): Z98.890 - Other specified postprocedural states Category: Surgical (6) History of Papanicolaou smear of cervix: Onset Date: ~2023 Code(s): Z92.89 - Personal history of other medical treatment Category: Medical (7) Fibroid uterus: Code(s): D25.9 - Leiomyoma of uterus, unspecified Category: Medical Qualifiers: Uterine leiomyoma location: unspecified location Qualified Code(s): D25.9 - Leiomyoma of uterus, unspecified (8) History of mammogram: Onset Date: ~2023 Code(s): Z92.89 - Personal history of other medical treatment Category: Medical (9) Family history of uterine cancer: Code(s): Z80.49 - Family history of malignant neoplasm of other genital organs Category: Medical (10) Family history of melanoma: Code(s): Z80.8 - Family history of malignant neoplasm of other organs or systems Category: Medical Plan . Patient Instructions: Health screenings for women You should visit your health care provider from time to time, even if you are healthy. The purpose of these visits is to: Screen for medical issues Assess your risk for future medical problems Encourage a healthy lifestyle Update vaccinations and other preventive care services Help you get to know your provider in case of an illness Information Even if you feel fine, you should still see your provider for regular checkups. These visits can help you avoid problems in the future. For example, the only way to find out if you have high blood pressure is to have it checked regularly. High blood sugar and high cholesterol levels also may not have any symptoms in the early stages. A simple blood test can check for these conditions. There are specific times when you should see your provider or receive specific health screenings. The [place] Preventive Services Task Force publishes a list of recommended screenings. Below are screening guidelines for women ages 18 to 39. BLOOD PRESSURE SCREENING Your blood pressure should be checked at least once every 3 to 5 years if: Your blood pressure is in the normal range (top number less than 120 mm Hg and bottom number less than 80 mm Hg) You don't have risk factors for high blood pressure Ask your provider if you need your blood pressure checked more often if: The top number is 120 to 129 mm Hg or the bottom number is 70 to 79 mm Hg You have diabetes, heart disease, kidney problems, are overweight, or have certain other health conditions You have a first-degree relative with high blood pressure You are Black You had high blood pressure during a If the top number is 130 mm Hg or greater or the bottom number is 80 mm Hg or greater, this is considered stage 1 hypertension. Schedule an appointment with your provider to learn how you can reduce your blood pressure. Watch for blood pressure screenings in your area. Ask your provider if you can stop in to have your blood pressure checked. BREAST CANCER SCREENING Experts do not agree about the benefits of breast self-exams in finding breast cancer or saving lives. Talk to your provider about what is best for you. A screening mammogram is not recommended for most women under age 40. Your provider may discuss and recommend mammograms, MRI scans, or ultrasounds if you have an increased risk for breast cancer, such as: A mother or sister who had breast cancer at a young age (most often starting screening earlier than the age the close relative was diagnosed) You carry a high-risk genetic marker CERVICAL CANCER SCREENING Cervical cancer screening should start at age 21 years unless your provider advises otherwise. After the first test: Women ages 21 through 29 should have a Pap test every 3 years. Exoprts do not agree on whether HPV testing is recommended for this age group. Women ages 30 through 65 should be screened with either a Pap test every 3 years or the HPV test every 5 years or both tests every 5 years (called cotesting ). Women who have been treated for precancer (cervical dysplasia) should continue to have Pap tests for 20 years after treatment or until age 65, whichever is longer. If you have had your uterus and cervix removed (total hysterectomy), and you have not been diagnosed with cervical cancer or precancer (high grade cervical neoplasia), you do not need cervical cancer screening. CHOLESTEROL SCREENING Cholesterol screening should begin at: Age 45 for women with no known risk factors for coronary heart disease Age 20 for women with known risk factors for coronary heart disease Repeat cholesterol screening should take place: Every 5 years for women with normal cholesterol levels More often if changes occur in lifestyle (including weight gain and diet) More often if you have diabetes, heart disease, kidney problems, or certain other conditions DIABETES SCREENING You should be screened for diabetes starting at age 35 and then repeated every 3 years if you have no risk factors for diabetes. Screening may need to start earlier and be repeated more often if you have other risk factors for diabetes, such as: You have a first degree relative with diabetes. You are overweight or have obesity. You have high blood pressure, prediabetes, or a history of heart disease. Screening for diabetes should be done if you are planning to become and you are overweight and have other risk factors such as high blood pressure. DENTAL EXAM Go to the dentist once or twice every year for an exam and cleaning. Your dentist will evaluate if you need more frequent visits. EYE EXAM Have an eye exam every 5 to 10 years before age 40. If you have vision problems, have an eye exam every 2 years or more often if recommended by your provider. You should have an eye exam that includes an examination of your retina (back of your eye) at least every year if you have diabetes. IMMUNIZATIONS Commonly needed vaccines include: Flu shot: get one every year. COVID-19 vaccine: ask your provider what is best for you. Tetanus-diphtheria and acellular pertussis (Tdap) vaccine: have one at or after age 19 as one of your tetanus-diphtheria vaccines if you did not receive it as an adolescent. Tetanus-diphtheria: have a booster (or Tdap) every 10 years. Varicella vaccine: receive 2 doses if you never had chickenpox or the varicella vaccine. Hepatitis B vaccine: receive 2, 3, or 4 doses, depending on your exact circumstances. Measles, mumps, and rubella (MMR) vaccine: receive 1 to 2 doses if you are not already immune to MMR. Your provider can tell you if you are immune. Ask your provider about the human papillomavirus (HPV) vaccine if: You have not received the HPV vaccine in the past You have not completed the full vaccine series (you should catch up on this shot) Ask your provider if you should receive other immunizations if you have certain health problems that increase your risk for some diseases such as pneumonia. INFECTIOUS DISEASE SCREENING Women who are sexually active should be screened for chlamydia and gonorrhea up until age 25. Women 25 years and older should be screened for chlamydia and gonorrhea if at high risk. Screening for hepatitis C: All adults ages 18 to 79 should get a one-time test for hepatitis C. people should be screened at every . Screening for human immunodeficiency virus (HIV): All people ages 15 to 65 should get a one-time test for HIV. Depending on your lifestyle and medical history, you may also need to be screened for infections such as syphilis and HIV, as well as other infections. PHYSICAL EXAM All adults should visit their provider from time to time, even if they are healthy. The purpose of these visits is to: Screen for disease Assess your risk of future medical problems Encourage a healthy lifestyle Update your vaccinations and other preventive care services Maintain a relationship with a provider in case of an illness Your height, weight, and BMI should be checked at every exam. During your exam, your provider may ask you about: Depression and anxiety Diet and exercise Alcohol and tobacco use Safety issues, such as using seat belts, smoke detectors, and intimate partner violence Your medicines and risk for interactions SKIN SELF-EXAM Your provider may check your skin for signs of skin cancer, especially if you're at high risk, such as if you: Have had skin cancer before Have close relatives with skin cancer Have a weakened immune system OTHER SCREENING Talk with your provider about colon cancer screening if you have a strong family history of colon cancer or polyps, or if you have had inflammatory bowel disease or polyps yourself. Routine bone density screening of women under 40 is not recommended.
[2025-03-10 08:01] VITALS: BP 105/60; PULSE 77; O2SAT 99
== END 2025-03-10 08:23 | disposition home or self-care (01) ==
LOC: HO.HMCFM 07:50
PROVIDERS: PCP Nurse Practitioner Family; Visit Provider Nurse Practitioner Family
DX: Z00.00 Encounter for general adult medical examination without abnormal findings (principal); F33.0 Major depressive disorder, recurrent, mild; F41.1 Generalized anxiety disorder; E78.2 Mixed hyperlipidemia; Z98.890 Other specified postprocedural states; Z92.89 Personal history of other medical treatment; D25.9 Leiomyoma of uterus, unspecified; Z80.49 Family history of malignant neoplasm of other genital organs; Z80.8 Family history of malignant neoplasm of other organs or systems